=== PATIENT | female | born 1990 | race Caucasian/White ===

== ENCOUNTER 2020-06-10 06:07 | Inpatient (IN) | payer OTHER ==
[2020-06-10] MEDS ORDERED: Methylergonovine 0.2 MG/ML VIAL IM PRN ×2 (06:17→06:43)
[2020-06-10] MEDS ORDERED: Lidocaine 1% (PF) 30 ML VIAL SC PRN (06:17)
[2020-06-10] MEDS ORDERED: Carboprost 250 MCG/ML AMP IM PRN (06:17)
[2020-06-10] MEDS ORDERED: Ondansetron PF 4 MG/2 ML Vial IVP PRN ×2 (06:17→06:43)
[2020-06-10] MEDS ORDERED: Diphenoxylate HCl/Atropine Tablet PO PRN ×2 (06:17)
[2020-06-10] MEDS ORDERED: Oxytocin 10 UNITS/ML VIAL ONE (06:17)
[2020-06-10] MEDS ORDERED: Misoprostol 200 MCG TAB PR PRN (06:17)
[2020-06-10] MEDS ORDERED: NS / Oxytocin 40 units/1000ml 1,000 ML IV PRN (06:17)
[2020-06-10] MEDS ORDERED: Ibuprofen 800 MG TAB PO PRN (06:17)
[2020-06-10] MEDS ORDERED: HYDROcodone/Acetaminophen 5/325 mg Tablet PO PRN ×3 (06:17→06:43)
[2020-06-10] MEDS ORDERED: Promethazine HCl 25 MG/ML VIAL IM PRN ×2 (06:17→06:43)
[2020-06-10] MEDS ORDERED: Lidocaine 1% (PF) 30 ML VIAL ONE (06:18)
[2020-06-10] MEDS ORDERED: NS / Oxytocin 40 units/1000ml 1,000 ML ONE (06:18)
[2020-06-10 06:30] LABS: Hemoglobin 12.5 g/dL (12.0-16.0); Mean Corpuscular HGB CONC 33.7 g/dL (32.0-36.0); Mean Corpuscular Hemoglobin 28.3 pg (27.0-31.0); Mean Corpuscular Volume 83.9 fL (78.0-98.0); Mean Platelet Volume 9.8 fL (7.4-10.4); Platelet Count 200 thou/uL (130-400); RBC Distribution Width 13.7 % (11.5-14.5); Red Blood Cell (RBC) Count 4.44 mill/uL (4.20-5.40); White Blood Cell (WBC) Count 11.6 thou/uL (4.8-10.8)
[2020-06-10] MEDS ORDERED: Lactated Ringer's 1,000 ML IV SCH (06:30)
[2020-06-10] MEDS ORDERED: Preparation H Ointment 28 GM TUBE PR PRN (06:43)
[2020-06-10] MEDS ORDERED: hydrALAZINE 20 MG/ML VIAL SLOW IVP PRN (06:43)
[2020-06-10] MEDS ORDERED: Milk Of Magnesia 30 ML UDCUP PO PRN (06:43)
[2020-06-10] MEDS ORDERED: Bisacodyl 10 MG SUPP PR PRN (06:43)
[2020-06-10] MEDS ORDERED: diphenhydrAMINE 25 MG CAP PO PRN (06:43)
[2020-06-10] MEDS ORDERED: Benzocaine-Menthol 82.5 ML CAN TOP PRN (06:43)
[2020-06-10] MEDS ORDERED: Misoprostol 200 MCG TAB VAG PRN (06:43)
[2020-06-10] MEDS ORDERED: NS / Oxytocin 40 units/1000ml 1,000 ML IV SCH (06:45)
--- NOTE | 2020-06-10 06:49 | PDOC.OPDEL ---
OB Operative/Delivery Note Delivery Dr/Surgeon: Kiran Pre-Delivery Diagnosis: active labor Procedure/Post Delivery Dx: spontaneous vaginal delivery Weeks gestation: 37 Anesthesia: none - Findings A Sex: female Weight: 7 lb 7.261 oz - 1 min: 8 - 5 min: 9 - Additional Findings/Plan Placenta delivered: spontaneous Repaired Obstetrical Laceration: 1st degree Estimated blood loss: 50 Compilations/Other Findings: Right foot appears clubbed Post delivery plan: routine recovery
--- NOTE | 2020-06-10 06:51 | PDOC.LDHP ---
Labor and Delivery H&P Chief complaint: contractions HPI: 30 y/o at 37w6d, patient of Dr. Fulton, who presents with regular ctx and LOF. Denies VB or other concerns. +FM ROS neg for HEENT, cv, pulm, gi, gu, neuro, psych, skin, musculoskeletal or constitutional symptoms other than mentioned above OB History Details: 2 prior Current complications: none Past Medical History: None Current medications: pre-nato vitamins Previous surgical history: none Allergies/Adverse Reactions: Allergies Allergy/AdvReac Type Severity Reaction Status Date / Time No Known Allergies Allergy Verified 06/10/20 06:48 Social history: none - Physical Exam Vital signs reviewed and normal: yes General: NAD, breathing through contractions Lungs: nonlabored breathing Abdomen: gravid Extremeties: no edema FHT: category 1 - Vaginal Exam cm dilated: 10 Effacement: 100% Station: 0 - OB Labs Blood type: O RH: negative Antibody Screen: negative HIV: negative RPR: negative HEPSAg: negative 1 hour GCT: negative GBS: unknown Rubella: immune - Assessment L&D Assessment: term patient in labor - Plan Plan: admit to L&D, informed consent obtained
[2020-06-10 07:10] LABS: Syphilis Antibody Nonreactive (Nonreactive); Syphilis Antibody Index 0.02 S/CO (<1.00 Non-Reactive)
[2020-06-10 07:14] LABS: HBSAg Index 0.18 S/CO (0-0.99); Hep B Surf Ag Non-Reactive S/CO (NonReactive)
[2020-06-10 07:32] VITALS: BMI 42.9
[2020-06-10] MEDS ORDERED: FLU VACC QS2020-21(6MOS UP)/PF 60 MCG/0.5 ML SYRINGE IM ONE (07:45)
[2020-06-10] MEDS: Ibuprofen 800 MG TAB PO SCH ×2 (07:45→16:44)
[2020-06-10] MEDS ORDERED: Adacel (T-DAP) 0.5 ML SYRINGE IM ONE (09:00)
[2020-06-10] MEDS ORDERED: Measles/Mumps/Rubella 10 MCG/0.5 ML VIAL SC ONE (09:00)
[2020-06-10] MEDS ORDERED: Varicella virus, LIVE 0.5 ML VIAL SC ONE (09:00)
[2020-06-10] MEDS: Ferrous Sulfate 325 MG TAB PO SCH ×2 (14:24→17:14)
[2020-06-10] MEDS: Docusate Calcium (SURFAK) 240 MG CAP PO SCH (14:24)
[2020-06-10] MEDS ORDERED: Sodium Chloride 0.9% 10 ML ONE (14:33)
[2020-06-10 17:57] LABS: SARS-CoV-2 MS2 Positive; SARS-CoV-2 N Gene Negative; SARS-CoV-2 S Gene Negative; SARS-CoV-2 by NAA Not Detected (NotDetected); SARS-CoV-2 orf1ab Negative
[2020-06-10] MEDS: HYDROcodone/Acetaminophen 5/325 mg Tablet PO PRN (21:05)
[2020-06-11] MEDS: Ibuprofen 800 MG TAB PO SCH ×2 (00:09→08:08)
[2020-06-11] MEDS: Docusate Calcium (SURFAK) 240 MG CAP PO SCH ×2 (00:09→08:08)
[2020-06-11] MEDS: HYDROcodone/Acetaminophen 5/325 mg Tablet PO PRN (05:36)
[2020-06-11 07:51] VITALS: BP 116/61; TEMP 97.7
[2020-06-11] MEDS: Ferrous Sulfate 325 MG TAB PO SCH (08:08)
--- NOTE | 2020-06-11 15:07 | PDOC.PP ---
Post Progress Note Post Day #: 1 PO intake tolerated: yes Flatus: yes Ambulation: yes Vital Signs (12 hours) Temp Pulse Resp BP Pulse Ox 06/11/20 08:05 97 06/11/20 07:51 97.7 F 71 20 116/61 97 06/11/20 05:00 97.6 F 66 16 119/66 Weight Weight 250 lb - Physical Examination General: NAD Cardiovascular: no m/r/g, RRR Respiratory: clear to auscultation bilaterally Abdominal: + bowel sounds, lochia, no distention Extremities: negative homans (B) Neurological: no gross focal deficits Psychiatric: A&Ox3, normal affect Result Diagrams: 06/10/20 06:23 Additional Labs: Post Labs Hep Bs Antigen Non-Reactive S/CO (NonReactive) 06/10/20 06:23 Blood Type O NEGATIVE 06/10/20 06:23
== END 2020-06-11 15:35 | disposition home or self-care (01) | DRG 807 ==
LOC: L&D/OP 06:07 → L&D 06:43 → 3SW 13:13
PROVIDERS: ADMIT Obstetrics & Gynecology; ATTEND Obstetrics & Gynecology
PROC: 10E0XZZ Delivery of Products of Conception, External Approach (ICD-10-PCS; principal; 2020-06-10)
PROC: 3E0334Z Introduction of Serum, Toxoid and Vaccine into Peripheral Vein, Percutaneous Approach (ICD-10-PCS; 2020-06-10)
PROC: 0HQ9XZZ Repair Perineum Skin, External Approach (ICD-10-PCS; 2020-06-10)
DX: O26.893 Other specified pregnancy related conditions, third trimester (principal); Z37.0 Single live birth; Z67.41 Type O blood, Rh negative; Z3A.37 37 weeks gestation of pregnancy; O70.0 First degree perineal laceration during delivery; M21.541 Acquired clubfoot, right foot; O75.89 Other specified complications of labor and delivery; Z20.828 Contact with and (suspected) exposure to other viral communicable diseases
CPT/HCPCS: 36415; 85027; 85461; 86780; 86850; 86870; 86900; 86901; 87340; 87635; 90384; 96372; 99285; J2001; U0003